=== PATIENT | male | born 1950 | race Caucasian/White ===

== ENCOUNTER 2016-11-13 12:10 | Emergency (ER) | payer OTHER ==
[~2016-11-13] VITALS: Ht 172.7 cm; Wt 91.5 kg
[~2016-11-13 12:10] MED LIST: ADULT LOW DOSE81 M1 PO; ASCORBIC ACID500 M4 PO; AZULFIDINE500 MG PO; Ascorbic Acid,Ester- PO; Aspirin E.C. PO; CENTRUM SILVER1 EAC3 PO; Centrum Silver,Certa PO; ESTER-C 1,0001 EACH PO; FISH OIL OMEGA1 EACH PO; FLONASE16 G1 BOTH NARES; FOLIC ACID1 MG PO; Fish Oil PO; METHOTREXATE2.5 MG PO; PRAMIPEXOLE DI0.5 MG PO; RELAFEN750 MG PO; SIMVASTATIN40 MG PO; VALIUM2 MG PO; VICODIN,LORT1 TABLET PO
[2016-11-13 13:27] LABS: HEMATOCRIT 46.1 % (38.0-50.0); MCH 28.4 PG (29.0-34.0); MCHC 34.5 G/DL (30.0-36.0); MCV 82.3 FL (86-99); PLATELET COUNT 213 K/uL (156-360); RBC DIS.WIDTH-CV 14.4 % (11.8-14.6); WHITE BLOOD COUNT 4.6 K/uL (4.1-10.2)
[2016-11-13 13:51] LABS: CHLORIDE 106 mEq/L (99-109)
[2016-11-13 13:52] LABS: POTASSIUM 5.3 mEq/L (3.7-5.4); SODIUM 140 mEq/L (136-147)
[2016-11-13 13:53] LABS: GLUCOSE 105 mg/dL (70-99)
[2016-11-13 13:55] LABS: ANION GAP 8 MEQ/L (2-14)
[2016-11-13 13:57] LABS: GFR ESTIMATE (CALCULATED) > 59 mL/min/
[2016-11-13 13:58] LABS: UREA NITROGEN (BUN) 17 mg/dL (9-23)
[2016-11-13 13:59] LABS: ADD MIUA? NO; BILIRUBIN NEGATIVE; BLOOD NEGATIVE; COLOR YELLOW ((YELLOW)); GLUCOSE (STRIP) NEGATIVE; KETONES NEGATIVE; LEUKOCYTES NEGATIVE; NITRITE NEGATIVE; PROTEIN (STRIP) NEGATIVE; SPECIFIC GRAVITY 1.012 (1.000-1.030); UCUL ADDED? NO; UROBILINOGEN 0.2 MG/DL (0.2-1.0)
[2016-11-13] MEDS ORDERED: CINNAMON500 MG PO (14:37)
[2016-11-13] MEDS ORDERED: FISH OIL-OMEGA1 EACH PO (14:37)
[2016-11-13] MEDS ORDERED: FLEXERIL10 MG PO (16:39)
[2016-11-13] MEDS ORDERED: ULTRAM50 MG PO (16:39)
[2016-11-13 17:01] VITALS: BP 120/70
== END 2016-11-13 17:02 | disposition home or self-care (01) ==
LOC: EME 12:10
DX: M54.5 Low back pain (principal); E78.5 Hyperlipidemia, unspecified; Z87.891 Personal history of nicotine dependence
CPT/HCPCS: 76770; 80048; 81003; 85027; 99281; 99284